=== PATIENT | female | born 1995 | race Asian ===

== ENCOUNTER 2021-11-16 21:33 | Emergency (ER) | payer OTHER ==
[2021-11-16 21:45] VITALS: BP 115/75; PULSE 89; RESP 18; TEMP 98.2; BMI 18.3
[2021-11-16 23:29] LABS: BASO % 0.5 % (0-2.0); EOS % 11.3 % (0-4.5); HEMATOCRIT 38.4 % (32.4-45.2); HEMOGLOBIN 13.2 GM/dL (10.7-15.3); LYMPH % 19.7 % (8-40); MCH 28.1 pg (25.7-33.7); MCHC 34.4 g/dl (32.0-36.0); MEAN CELL VOLUME 81.7 fl (80-96); MEAN PLT VOLUME 8.2 fl (7.5-11.1); MONO % 6.2 % (3.8-10.2); NEUT % 62.3 % (42.8-82.8); PLATELET COUNT 385 10^3/uL (134-434); RDW 16.9 % (11.6-15.6); WHITE BLOOD COUNT 10.9 K/mm3 (4.0-10.0)
[2021-11-16 23:32] LABS: PH,URINE 5.5 (5.0-8.0); URINE APPEARANCE CLEAR; URINE BILIRUBIN NEGATIVE (NEGATIVE); URINE COLOR DK YELLOW; URINE GLUCOSE (UA) NEGATIVE (NEGATIVE); URINE KETONE NEGATIVE (NEGATIVE); URINE LEUK ESTERASE NEGATIVE (NEGATIVE); URINE NITRITE NEGATIVE (NEGATIVE); URINE PROTEIN NEGATIVE (NEGATIVE); URINE UROBILINOGEN 0.2 mg/dL (0.2-1.0)
[2021-11-16 23:51] LABS: CALCIUM 9.4 mg/dL (8.5-10.1)
[2021-11-16 23:52] LABS: BLOOD UREA NITROGEN 12.2 mg/dL (7-18)
[2021-11-16 23:55] LABS: CREATININE 0.5 mg/dL (0.55-1.3)
[2021-11-16 23:56] LABS: BILIRUBIN,TOTAL 0.3 mg/dL (0.2-1); TOT PROT 7.6 g/dl (6.4-8.2)
== END 2021-11-17 00:33 | disposition home or self-care (01) ==
LOC: JER 21:33
DX: O26.891 Other specified pregnancy related conditions, first trimester (principal); R10.9 Unspecified abdominal pain; Z3A.01 Less than 8 weeks gestation of pregnancy
CPT/HCPCS: 36415; 76817-TC; 80053; 81003; 84702; 85025; 87086; 93005; 93010; 99285-25